=== PATIENT | male | born 1930 | race Caucasian/White ===

== ENCOUNTER 2017-09-16 13:31 | Inpatient (IN) | payer BC, OTHER ==
[~2017-09-16] VITALS: Ht 172.7 cm; Wt 65.3 kg
[2017-09-16 13:38] VITALS: BP 114/50
[2017-09-16] MEDS ORDERED: LISINOPRIL 2.5 MG TABLET (13:41)
[2017-09-16] MEDS ORDERED: AMLODIPINE BESYLATE 5 MG TAB (13:41)
[2017-09-16] MEDS ORDERED: LOVASTATIN 10 MG TABLET (13:41)
[2017-09-16] MEDS ORDERED: METFORMIN HCL ER 500 MG TABLET (13:41)
[2017-09-16] MEDS ORDERED: TAMSULOSIN HCL 0.4 MG CAPSULE (13:41)
[2017-09-16] MEDS ORDERED: MYRBETRIQ ER 50 MG TABLET (13:41)
--- NOTE | 2017-09-16 14:55 | NUR ---
87m biba with c/o productive cough, subjective fever, and weakness x 3 days, progressively getting worse. Pt also reports of 5/10 headache. Pt denies any n/v/d. Pt is aox4. GCS=15. RR are even and unlabored. NAD. er md butler by bedside examining pt. nad. will continue to monitor.
[2017-09-16] MEDS ORDERED: NACL 0.9% 1,000 ML IV SCH (14:57)
--- NOTE | 2017-09-16 14:58 | NUR ---
Note undone in EDM - 09/16/17 at 1500 by JANINE 87m biba with c/o productive cough, subjective fever, and weakness x 3 days, progressively getting worse. Pt denies any n/v/d. Pt is aox4. GCS=15. RR are even and unlabored. NAD. er md butler by bedside examining pt. nad. will continue to monitor.
[2017-09-16 15:55] LABS: BASOPHILS # (AUTO) 0.1 K/uL (0.00-0.22); BASOPHILS % (AUTO) 0.6 % (0.0-2.0); EOSINOPHILS % (AUTO) 0.1 % (0.0-4.0); HEMATOCRIT 33.9 % (36-52); HEMOGLOBIN 11.4 g/dL (12.0-18.0); LYMPHOCYTES # (AUTO) 0.7 K/uL (2.0-11.5); LYMPHOCYTES % (AUTO) 8.1 % (20.5-51.1); MEAN CORPUSCULAR HEMOGLOBIN 31 pg (27-31); MEAN CORPUSCULAR HGB CONC 34 g/dL (33-37); MEAN CORPUSCULAR VOLUME 91 fL (80-94); MONOCYTES # (AUTO) 0.5 K/uL (0.8-1.0); MONOCYTES % (AUTO) 5.2 % (1.7-9.3); NEUTROPHILS # (AUTO) 7.9 K/uL (1.8-7.7); PLATELET COUNT (AUTO) 163 K/uL (140-450); RED BLOOD CELL COUNT(AUTO) 3.73 MIL/uL (4.20-6.10); RED CELL DISTRIBUTION WIDTH 12.4 % (11.6-13.7); WHITE BLOOD COUNT (AUTO) 9.2 K/uL (4.8-10.8)
--- NOTE | 2017-09-16 16:10 | NUR ---
iv fluids infusing without difficultly. pt is aox4. no acute resp distress. nad. will continue to monitor.
[2017-09-16 16:26] LABS: ALBUMIN 3.3 g/dL (3.4-5.0); ANION GAP 15.7 (8-16); ASPARTATE AMINOTRANSFERASE 55 U/L (15-37); CARBON DIOXIDE 29.4 mmol/L (21-32); CHLORIDE 98 mmol/L (98-107); CREATININE 0.9 mg/dL (0.7-1.3); GLUCOSE 95 mg/dL (74-106); POTASSIUM 3.1 mmol/L (3.5-5.1); SODIUM SERUM 140 mmol/L (136-145); TOTAL BILIRUBIN 0.3 mg/dL (0.0-1.0); UREA NITROGEN, BLOOD 25 mg/dL (7-18)
[2017-09-16] MEDS ORDERED: HYDROcodone/APAP 7.5/325 MG 1 TAB PO PRN (17:05)
[2017-09-16] MEDS ORDERED: ONDANSETRON 4 MG/2 ML VIAL IVP PRN (17:05)
[2017-09-16] MEDS ORDERED: ALBUTEROL SULFATE/IPRATROPIU 3 ML SOL IH PRN (17:05)
[2017-09-16] MEDS ORDERED: ACETAMINOPHEN 325 MG TAB PO PRN (17:05)
[2017-09-16] MEDS ORDERED: OSELTAMIVIR PHOSPHATE 75 MG CAP PO ONE (17:10)
[2017-09-16] MEDS ORDERED: POTASSIUM CHLORIDE 10 MEQ TABER PO ONE (17:10)
[2017-09-16] MEDS ORDERED: NACL 0.9% 1,000 ML IV ONE (17:10)
[2017-09-16] MEDS: NACL 0.9% 1,000 ML IV SCH (17:40)
[2017-09-16] MEDS: ALBUTEROL SULFATE/IPRATROPIU 3 ML SOL IH SCH (18:05)
--- NOTE | 2017-09-16 18:05 | NUR ---
RECEIVED PT ON UNIT VIA GURNEY, PT IS AAOX4, AMBULATES WITH ASSIST, IV IS ON THE LEFT AC, PATENT, INTACT, FLUSHING WELL, PT IS ON O2 2L NC, PT HAS DRY, INTERMITTENT COUGH, SKIN IS INTACT, NO S/S OF RESPIRATORY DISTRESS OR DISCOMFORT NOTED, ORIENTED PT TO ROOM, SAFETY/FALL PRECAUTIONS ARE IN PLACE, CALL LIGHT IS WITHIN REACH, PATIENT'S FRIEND IS AT BEDSIDE. WILL CONTINUE TO MONITOR.
--- NOTE | 2017-09-16 18:10 | NUR ---
Patient will be admitted to care of [facility]. Admited to Tele. Will go to room 112b . Belongings list completed. Bedside report to Rossy OTOOLE.
[2017-09-16 18:18] LABS: CHOL/HDL RATIO 4.4 (1-4.5); FREE T4 (FREE THYROXINE) 1.02 ng/dL (0.76-1.46); MAGNESIUM 2.2 mg/dL (1.8-2.4); PHOSPHORUS 3.1 mg/dL (2.5-4.9); THYROID STIMULATING HORMONE 0.46 uIU/mL (0.34-3.74)
[2017-09-16 19:12] LABS: APPEARANCE,URINE CLEAR (CLEAR); BILIRUBIN,URINE NEGATIVE (NEGATIVE); BLOOD, URINE TRACE-I (NEGATIVE); COLOR,URINE YELLOW (YELLOW); LEUKOCYTE ESTERASE ,URINE NEGATIVE (NEGATIVE); NITRITE, URINE NEGATIVE (NEGATIVE); PH,URINE 5.5 (5.0-9.0); UGLUCOSE NEGATIVE (NEGATIVE)
--- NOTE | 2017-09-16 19:25 | NUR ---
ENDORSED PT TO OPEN HEARTH WORKER NURSE FOR CONTINUITY OF CARE. PT STABLE AT THIS TIME. PATIENT'S FRIEND IS AT BEDSIDE.
--- NOTE | 2017-09-16 19:30 | NUR ---
RECEIVED REPORT FROM DAY SHIFT RN, PATIENT RESTING IN BED, NO S/S OF DISTRESS NOTED, FRIEND IS AT THE BEDSIDE. PATIENT SPEAKS LATVIAN, SO THE FRIEND IS THE DATABASE CONSULTANT. IV PATENT AND INTACT, INFUSING NS AT 50ML/HR. CALL LIGHT WITHIN REACH, SAFETY MEASURE ENSURED, WILL CONTINUE TO MONITOR.
[2017-09-16 20:00] VITALS: BP 123/57
--- NOTE | 2017-09-16 20:05 | NUR ---
RUBBER VULCANIZING MACHINE OPERATOR [id number] USED FOR ADMISSION ASSESSMENT, UPON ASSESSMENT, NOTED PATIENT IS A/O X1, UNABLE TO GIVE MEDICAL HISTORY AND OTHER INFORMATION REGARDING HIS CARE. HIS FRIEND AT THE BEDSIDE SPEAKS A LITTLE BIT DANISH, SAID," HE LIVES ALONE, NO FAMILY MEMBER, HE HAS DIABETES LIKE ME, I DON'T KNOW MUCH ABOUT HIS MEDICAL HISTORY."
[2017-09-16 20:09] LABS: RBC,URINE NONE SEEN /HPF (0-5); WBC,URINE 0-5 (RARE) /HPF (0-5)
[2017-09-16] MEDS ORDERED: DEXTROSE 50% 50 ML SYR IVP PRN (20:45)
--- NOTE | 2017-09-16 20:49 | NUR ---
VOMITED X1, ZOFRAN GIVEN ORDERED. NO S/S OF DISTRESS NOTED, RESPIRATION EVEN AND UNLABORED, CALL LIGHT WITHIN REACH, SAFETY MEASURE ENSURED, WILL CONTINUE TO MONITOR.
[2017-09-16] MEDS: DOCUSATE SODIUM 100 MG GELCAP PO SCH (20:50)
[2017-09-16] MEDS: methylPREDNISolone SS 40 MG/ML VIAL IVP SCH (20:50)
[2017-09-16] MEDS ORDERED: LEVOFLOXACIN 500 MG/D5W PREMIX 100 ML IV SCH (21:00)
--- NOTE | 2017-09-16 21:02 | NUR ---
BS 55 AND 49, 50% DEXTROSE IVP ADMINISTERED ORDERED, PATIENT TOLERATED WELL. WILL CONTINUE TO MONITOR.
[2017-09-16] MEDS: BLOOD GLUCOSE MONITORING 1 DEV DEV FS SCH (21:04)
--- NOTE | 2017-09-16 21:14 | NUR ---
BS 205, NO S/S OF DISTRESS NOTED, PATIENT RESTING IN BED, WILL CONTINUE TO MONITOR.
--- NOTE | 2017-09-16 21:15 | NUR ---
DUE MEDICATION GIVEN, PATIENT TOLERATED WELL. RESPIRATION EVEN AND UNLABORED, CALL LIGHT WITHIN REACH, SAFETY MEASURE ENSURED, WILL CONTINUE TO MONITOR.
--- NOTE | 2017-09-16 21:29 | NUR ---
FEVER 100.4, TYLENOL GIVEN ORDERED, NO S/S OF DISTRESS NOTED, WILL CONTINUE TO MONITOR.
--- NOTE | 2017-09-16 22:20 | NUR ---
INFLUENZA A POSITIVE, MADE DR. AGUILAR AWARE.
[2017-09-17] VITALS: BP 117/51
--- NOTE | 2017-09-17 00:54 | NUR ---
PATIENT WAS SLEEPING, EASY TO AROUSE, NO S/S OF DISTRESS NOTED, RESPIRATION EVEN AND UNLABORED, REFUSED O2 NC, ON ROOM AIR, O2SAT 92%. CALL LIGHT WITHIN REACH, SAFETY MEASURE ENSURED, WILL CONTINUE TO MONITOR.
--- NOTE | 2017-09-17 02:55 | NUR ---
NO CHANGE IN CONDITION, PATIENT IS SLEEPING, RESPIRATION EVEN AND UNLABORED, NO S/S OF DISTRESS NOTED, CALL LIGHT WITHIN REACH, SAFETY MEASURE ENSURED, WILL CONTINUE TO MONITOR.
[2017-09-17 04:00] VITALS: BP 103/42
[2017-09-17] MEDS ORDERED: CLINDAMYCIN 600 MG/4 ML VIAL ONE (04:37)
[2017-09-17] MEDS: methylPREDNISolone SS 40 MG/ML VIAL IVP SCH ×3 (04:41→20:27)
[2017-09-17] MEDS: CLINDAMYCIN 600 MG in DEXTROSE 5% 50 ML IV SCH ×3 (04:42→20:27)
--- NOTE | 2017-09-17 04:53 | NUR ---
DUE MEDICATION GIVEN, PATIENT TOLERATED WELL. NO S/S OF DISTRESS NOTED, RESPIRATION EVEN AND UNLABORED, CALL LIGHT WITHIN REACH, SAFETY MEASURE ENSURED, WILL CONTINUE TO MONITOR.
--- NOTE | 2017-09-17 06:17 | NUR ---
PATIENT RESTING IN BED, NO S/S OF DISTRESS NOTED, RESPIRATION EVEN AND UNLABORED, CALL LIGHT WITHIN REACH, SAFETY MEASURE ENSURED, WILL CONTINUE TO MONITOR.
[2017-09-17] MEDS: BLOOD GLUCOSE MONITORING 1 DEV DEV FS SCH ×4 (06:30→20:26)
[2017-09-17] MEDS: INSULIN LISPRO SLIDING SCALE 100 UNITS/ML VIAL SUBQ PRN ×4 (06:32→20:41)
[2017-09-17] MEDS: ALBUTEROL SULFATE/IPRATROPIU 3 ML SOL IH SCH ×3 (07:10→19:33)
--- NOTE | 2017-09-17 07:14 | NUR ---
ENDORSED PLAN OF CARE TO DAY SHIFT RN, PATIENT RESTING IN BED, IN STABLE CONDITION, NO S/S OF DISTRESS.
--- NOTE | 2017-09-17 07:20 | NUR ---
REPORT RECEIVED FROM BUSINESS INTELLIGENCE ARCHITECT NURSE NAZIA MCKEON AWAKE ALERT RESTING QUIETLY IN NAD, RESP EVEN UNLABORED ON RA, SKIN WARM DRY COLOR WNL, DENIES PAIN OR DISCOMFORT, FRIEND AT BEDSIDE, PLAN OF CARE REVIEWED, NO IMMEDIATE NEEDS VOICED AT THIS TIME, CALL HAIDER WITHIN REACH, SIDE RAILS UP, BED LOCKED IN LOW POSITION WILL CONTINUE TO MONITOR.
[2017-09-17 08:00] VITALS: BP 117/47
[2017-09-17] MEDS: amLODIPine 5 MG TAB PO SCH (08:08)
--- NOTE | 2017-09-17 08:09 | NUR ---
PT SITTING UP EATING BREAKFAST IN NAD, WILL ADMINISTER AM MEDS NOW, FRIEND AT BEDSIDE ASSISTING PT WITH BREAKFAST.
[2017-09-17] MEDS: metFORMIN 500 MG TAB PO SCH ×2 (08:11→16:18)
[2017-09-17] MEDS: LISINOPRIL 5 MG TAB PO SCH (08:12)
[2017-09-17] MEDS: DOCUSATE SODIUM 100 MG GELCAP PO SCH ×2 (08:12→20:27)
[2017-09-17] MEDS: ATORVASTATIN 20 MG TAB PO SCH (08:12)
[2017-09-17] MEDS: TAMSULOSIN 0.4 MG CAP PO SCH (08:12)
--- NOTE | 2017-09-17 09:13 | NUR ---
CM NOTE PER [facility], REVIEWS SHOULD ONLY BE SENT TO [facility]. INITIAL REVIEW FAXED TO [facility] [phone] DONYA Gomez. # [phone].
--- NOTE | 2017-09-17 09:20 | NUR ---
US AT BEDSIDE.
--- NOTE | 2017-09-17 09:49 | NUR ---
PATIENT HAS BEEN SCREENED AND CATEGORIZED MODERATE NUTRITION RISK. PATIENT WILL BE SEEN WITHIN 3-5 DAYS OF ADMISSION. 09/18/17-09/20/[address]
--- NOTE | 2017-09-17 11:30 | NUR ---
FINGER STICK GLUCOSE 230, WILL GIVE 8 UNITS INSULIN PER SLIDING SCALE. PT SITTING UP RESTING QUIETLY IN NAD, DENIES PAIN OR DISCOMFORT, DENIES ANY IMMEDIATE NEEDS, WILL CONTINUE TO MONITOR.
[2017-09-17 12:00] VITALS: BP 121/60
--- NOTE | 2017-09-17 14:44 | NUR ---
SITTING UP TALKING WITH FRIEND AT BEDSIDE, DENIES PAIN OR DISCOMFORT, RESP EVEN UNLABORED ON ROOM AIR WITH OCCASIONAL COUGHS, DENIES ANY IMMEDIATE NEEDS, CALL HAIDER WITHIN REACH, SIDE RAILS UP, BED LOCKED IN LOW POSITION, WILL CONTINUE TO MONITOR
[2017-09-17] MEDS ORDERED: LACTOBACILLUS RHAMNOSUS GG 1 EACH CAP PO SCH (15:00)
[2017-09-17 16:00] VITALS: BP 110/55
[2017-09-17] MEDS: NACL 0.9% 1,000 ML IV SCH (16:18)
--- NOTE | 2017-09-17 16:30 | NUR ---
BEDSIDE GLUCOSE 288, WILL GIVE 6 UNITS INSULIN PER SLIDING SCALE, 1600 EKG STRIP SHOWS BBB, DR HINTON NOTIFIED, WILL ADJUST LEADS LOCATIONS AND CONTINUE TO MONITOR PER DR HINTON. PT CONDITION UNCHANGED DENIES CHEST PAIN, DIZZINESS OR LIGHT HEADEDNESS, TALKING WITH FRIEND IN NAD.
--- NOTE | 2017-09-17 18:05 | NUR ---
SITTING UP EATING DINNER.
--- NOTE | 2017-09-17 19:08 | NUR ---
REPORT GIVEN TO INDEPENDENT LIVING ADVISOR NURSE NAZIA MCKEON IN STABLE CONDITION.
--- NOTE | 2017-09-17 19:18 | NUR ---
RECEIVED REPORT FROM DAY SHIFT RN, PATIENT RESTING IN BED, AWAKE ALERT ORIENTED X2, NO S/S OF DISTRESS NOTED, RESPIRATION EVEN AND UNLABORED, ON NC 2L. IV PATENT AND INTACT, INFUSING NS AT 50ML/HR. PLAN OF CARE DISCUSSED, PATIENT VERBALIZED UNDERSTANDING, RT IS AT THE BEDSIDE, WILL GIVE BREATHING TREATMENT. CALL LIGHT WITHIN REACH, SAFETY MEASURE ENSURED, WILL CONTINUE TO MONITOR.
[2017-09-17 19:58] VITALS: BP 102/47
[2017-09-17] MEDS ORDERED: LEVOFLOXACIN 750 MG/D5W PREMIX 150 ML IV SCH (21:00)
--- NOTE | 2017-09-17 21:23 | NUR ---
DUE MEDICATION GIVEN, PATIENT TOLERATED WELL, NO S/S OF DISTRESS NOTED, RESPIRATION EVEN AND UNLABORED, CALL LIGHT WITHIN REACH, SAFETY MEASURE ENSURED, WILL CONTINUE TO MONITOR.
[2017-09-18] VITALS: BP 101/44
--- NOTE | 2017-09-18 00:20 | NUR ---
NO CHANGE IN CONDITION, PATIENT WAS SLEEPING, EASY TO AROUSE, VITAL SINGS STABLE, CALL LIGHT WITHIN REACH, SAFETY MEASURE ENSURED, WILL CONTINUE TO MONITOR.
--- NOTE | 2017-09-18 02:03 | NUR ---
PATIENT PULLED THE IV OUT, PRESSURE APPLIED ON THE IV SITE, UNTIL NO ACTIVE BLEEDING NOTED AT THE SITE, STARTED NEW IV 20G LT FOREARM. TOLERATED WELL. WILL CONTINUE TO MONITOR.
[2017-09-18 04:00] VITALS: BP 110/57
[2017-09-18] MEDS: CLINDAMYCIN 600 MG in DEXTROSE 5% 50 ML IV SCH ×2 (04:44→14:17)
[2017-09-18] MEDS: methylPREDNISolone SS 40 MG/ML VIAL IVP SCH ×2 (04:48→14:16)
--- NOTE | 2017-09-18 04:52 | NUR ---
DUE MEDICATION GIVEN, PATIENT TOLERATED WELL. NO S/S OF DISTRESS NOTED, RESPIRATION EVEN AND UNLABORED, CALL LIGHT WITHIN REACH, SAFETY MEASURE ENSURED, WILL CONTINUE TO MONITOR.
[2017-09-18 06:17] LABS: BASOPHILS # (AUTO) 0.1 K/uL (0.00-0.22); BASOPHILS % (AUTO) 1.3 % (0.0-2.0); EOSINOPHILS % (AUTO) 0.1 % (0.0-4.0); HEMATOCRIT 31.8 % (36-52); HEMOGLOBIN 10.5 g/dL (12.0-18.0); LYMPHOCYTES # (AUTO) 0.8 K/uL (2.0-11.5); LYMPHOCYTES % (AUTO) 12.8 % (20.5-51.1); MEAN CORPUSCULAR HEMOGLOBIN 30 pg (27-31); MEAN CORPUSCULAR HGB CONC 33 g/dL (33-37); MEAN CORPUSCULAR VOLUME 91 fL (80-94); MONOCYTES # (AUTO) 0.4 K/uL (0.8-1.0); NEUTROPHILS # (AUTO) 5.3 K/uL (1.8-7.7); NEUTROPHILS % (AUTO) 79.8 % (42.2-75.2); PLATELET COUNT (AUTO) 160 K/uL (140-450); RED BLOOD CELL COUNT(AUTO) 3.49 MIL/uL (4.20-6.10); RED CELL DISTRIBUTION WIDTH 12.7 % (11.6-13.7); WHITE BLOOD COUNT (AUTO) 6.6 K/uL (4.8-10.8)
[2017-09-18] MEDS: BLOOD GLUCOSE MONITORING 1 DEV DEV FS SCH ×3 (06:36→17:06)
[2017-09-18] MEDS: INSULIN LISPRO SLIDING SCALE 100 UNITS/ML VIAL SUBQ PRN ×3 (06:37→17:07)
[2017-09-18 06:39] LABS: ANION GAP 14.6 (8-16); CARBON DIOXIDE 24.2 mmol/L (21-32); CHLORIDE 101 mmol/L (98-107); CREATININE 0.8 mg/dL (0.7-1.3); GLUCOSE 251 mg/dL (74-106); POTASSIUM 3.8 mmol/L (3.5-5.1); SODIUM SERUM 136 mmol/L (136-145); UREA NITROGEN, BLOOD 26 mg/dL (7-18)
[2017-09-18 06:46] LABS: MAGNESIUM 1.8 mg/dL (1.8-2.4); PHOSPHORUS 2.6 mg/dL (2.5-4.9)
[2017-09-18] MEDS: ALBUTEROL SULFATE/IPRATROPIU 3 ML SOL IH SCH ×2 (06:48→12:52)
--- NOTE | 2017-09-18 06:50 | NUR ---
BS 245, ADMINISTER HUMALOG 4UNITS PER SLIDING SCALE.
--- NOTE | 2017-09-18 07:15 | NUR ---
ENDORSED PLAN OF CARE TO DAY SHIFT RN, PATIENT IS IN STABLE CONDITION, NO S/S OF DISTRESS NOTED.
--- NOTE | 2017-09-18 07:17 | NUR ---
RECEIVED REPORT FROM [facility] FOR CONTINUITY OF CARE. PATIENT IN BED RESTING WITH FRIEND AT BEDSIDE. NO ACUTE DISTRESS NOTED. WILL CONT TO MONITOR PT.
[2017-09-18 08:01] VITALS: BP 141/62
--- NOTE | 2017-09-18 08:35 | NUR ---
PHYSICAL THERAPY AT BEDSIDE.
[2017-09-18] MEDS ORDERED: LACTOBACILLUS RHAMNOSUS GG 1 EACH CAP PO SCH (09:00)
[2017-09-18] MEDS: NACL 0.9% 1,000 ML IV SCH (09:01)
[2017-09-18] MEDS: ATORVASTATIN 20 MG TAB PO SCH (09:39)
[2017-09-18] MEDS: amLODIPine 5 MG TAB PO SCH (09:39)
[2017-09-18] MEDS: TAMSULOSIN 0.4 MG CAP PO SCH (09:39)
[2017-09-18] MEDS: DOCUSATE SODIUM 100 MG GELCAP PO SCH (09:39)
[2017-09-18] MEDS: LISINOPRIL 5 MG TAB PO SCH (09:40)
[2017-09-18] MEDS: metFORMIN 500 MG TAB PO SCH ×2 (09:40→17:11)
--- NOTE | 2017-09-18 09:40 | NUR ---
PT RETURNED FROM PT ROOM. ADMINISTERED ALL SCHEDULED MEDS. ON ROOM AIR O2 SAT @90%. BLOOD PRESSURE AND HR RECHECKED. 117/74. HR 74. NO ACUTE DISTRESS NOTED. FRIEND MICHAEL AT BEDSIDE. WILL CONT TO MONITOR PT.
[2017-09-18] MEDS ORDERED: MIRA50TE PO (09:46)
[2017-09-18] MEDS ORDERED: LEVO750T2 PO (09:46)
[2017-09-18] MEDS ORDERED: LISI-424 PO (09:46)
[2017-09-18] MEDS ORDERED: AMLO5TAB4 PO (09:46)
[2017-09-18] MEDS ORDERED: TAMS0.4C96 PO (09:46)
[2017-09-18] MEDS ORDERED: DM H118S7 PO (09:46)
[2017-09-18] MEDS ORDERED: LACT10CA PO (09:46)
[2017-09-18] MEDS ORDERED: CLIN300C2 PO (09:46)
[2017-09-18] MEDS ORDERED: LOVA20TA8 PO (09:46)
[2017-09-18] MEDS ORDERED: GLU500 PO (09:46)
--- NOTE | 2017-09-18 10:15 | NUR ---
SPOKE WITH PATIENT AND HIS FRIEND KAPIL VIA [facility] TELEPHONE MEMORY CARE DIRECTOR FROYLAN #[id number] AT LENGTH REGARDING DISCHARGE PLAN, PT MADE AWARE OF RECOMMENDATION TO GO TO SNF/REHAB FOR PT DUE TO UNSAFE GAIT AT THIS TIME, FRIEND KAPIL STATES SHE DOES "NOT LIVE WITH HIM, I WILL TAKE HIM HOME AND I HAVE TO GO HOME BECAUSE I HAVE MY OWN LIFE TOO", PT WAS INITIALLY AGREEABLE TO GOING TO SNF FOR PT/REHAB BUT STATES "ONLY AFTER I TAKE CARE OF IMPORTANT BUSINESS, I NEED TO GO TO THE BANK AND PAY MY RENT TODAY", PT EXPLAINED THAT DOCTOR AND PT RECOMMENDS GOING TO SNF DIRECTLY FROM HOSPITAL FOR HIS OWN SAFETY, PT BECAME IRRITATED AND WITH RAISED VOICE STATED "I CAN'T GO TO REHAB TODAY I NEED TO GO HOME FIRST AND GO TO THE BANK AND PAY MY RENT AND I ALSO HAVE AN APPOINTMENT, YOU CAN CALL ME AT HOME TO ARRANGE FOR ME TO GO TO REHAB!!" KAPIL STATED THAT "HE, MR ESCOBEDO DID PHYSICAL THERAPY TODAY AND YESTERDAY, HE DOESN'T NEED ANY MORE THERAPY FOR A WEEK!! I CAN TAKE HIM HOME AND TAKE HIM TO THE BANK" IT WAS EXPLAINED TO HER THAT DAILY PT AT SNF WAS RECOMMENDED UNTIL HE IS STRONGER TO GO LIVE ALONE AT HOME ON THE SECOND FLOOR, KAPIL AND PT ADAMANTLY REFUSES NEED FOR TRANSFER TO SNF FOR PT, KAPIL STATES "MAYBE I WILL STAY WITH HIM FOR ABOUT A WEEK OR SO AND SEE WHAT HAPPENS", CM/SW MADE AWARE OF THE DISCUSSION AND PT'S WISH TO GO HOME AND REFUSE TO GO SNF.
--- NOTE | 2017-09-18 10:20 | NUR ---
CM NOTE CONCURRENT REVIEW FAXED TO [facility] [phone] DONYA Shrestha PH# [phone].
--- NOTE | 2017-09-18 11:37 | NUR ---
CM NOTE RECEIVED ORDER FOR HOME HEALTH AND FWW. PER [facility] PH# [phone], PATIENT'S HOME HEALTH ARRANGED WITH [facility] PH# [phone] AUTH# [id number] AND [facility] IS AWARE OF PATIENT'S DISCHARGE ORDER FOR TODAY. PER [facility] WILL DELIVER FWW BEDSIDE TODAY AUTH# [id number]. CHARGE NURSE HIGINIO WILSON.
[2017-09-18 12:00] VITALS: BP 127/61
[2017-09-18 12:23] VITALS: BP 127/61
[2017-09-18] MEDS ORDERED: METH4TAB3 PO (12:35)
--- NOTE | 2017-09-18 14:51 | NUR ---
DISCHARGE INSTRUCTIONS AND PRESCIPTION INFORMATION GIVE AND EXPLAINED TO PT AND FRIEND MICHAEL. VERBALIZED UNDERSTANDING. AWAITING WALKER. PRIOR TO DC HOME. IV ATB INFUSING. SITE CLEAR. WILL CONT TO MONITOR PT.
--- NOTE | 2017-09-18 15:13 | NUR ---
CM NOTE RECEIVED FAX FROM [facility] REQUESTING FOR H&P, PROGRESS NOTES, RECENT MEDICATION LIST, PHYSICAL THERAPY NOTES TO BE FAXED TO THEM. PER [facility] CARE CM DONYA # [phone] TO SEND THE INFORMATION REQUESTED TO [facility]. FAXED H&P, PROGRESS NOTES, RECENT MEDICATION LIST AND PHYSICAL THERAPY NOTES TO [facility] [phone] # [phone] ATTN: FARIHA CORNEJO, ADDIE.
[2017-09-18 16:00] VITALS: BP 102/62
--- NOTE | 2017-09-18 16:02 | NUR ---
STILL WAITING ON WALKER DELIVERY, IT HAS BEEN EXPLAINED TO THEM MANY TIMES THAT IT IS UNSAFE FOR PT TO GO HOME WITHOUT ASSISTIVE DEVICE, PT AND FRIEND MICHAEL DOES NOT WANT TO WAIT FOR WALKER BECAUSE THEIR FRIEND SUSY IS AVAILABLE NOW TO TAKE THEM HOME, PT AND MICHAEL EXPLAINED AGAIN THAT IF MR ESCOBEDO REFUSES TRANSFER TO SNF FOR PT, PT NEEDS WALKER TO GO HOME. THEIR FRIEND SUSY STATES SHE CAN'T WAIT AROUND TO GIVE THEM A RIDE HOME, AND ASKED IF TRANSPORTATION SERVICE CAN BE ARRANGED FOR THEN TO GET HOME WHEN WALKER IS DELIVERED. WILL NOTIFY CHARGE AND CM OF UNAVAILABILITY OF RIDE TO GO HOME AND PT'S WISH TO GO HOME NOW WITHOUT WALKER.
--- NOTE | 2017-09-18 17:15 | NUR ---
PT AND MICHAEL VERY UPSET THAT THEY ARE STILL WAITING FOR WALKER DELIVERY, WILL CALL [facility] TO FIND OUT WHEN IT WILL ARRIVE, PT AND MICHAEL REASSURED THAT WE WILL ARRANGE [facility] TO TAKE THEM HOME WITH [facility] VOUCHER PER NURSING ORACLE DEVELOPER/LESLY/CHARGE NURSE HIGINIO. Addendum: 09/18/17 at 1926 by Julia Morales RN ATTEMPTED TO CALL THEIR FRIEND SUSY TO INFORM HER OF [facility] TRANSPORTATION, BUT NO ANSWER, LEFT MESSAGE.
--- NOTE | 2017-09-18 17:32 | NUR ---
CALLED [facility] TO CHECK THE STATUS OF THE FWW THEY HAVE THE AUTHORIZATION AND CLEARANCE BUT NO DIANA NUMBER THAT TELLS THE DELIVERY TIME.
--- NOTE | 2017-09-18 18:18 | NUR ---
PT GETTING UP OUT OF BED WALKING OUT TO HALLWAY YELLING THAT HE CAN'T WAIT FOR WALKER ANY MORE, WANTS TO GO HOME, PT IS STILL UNSTEADY ON HIS FEET, STUMBLING, NEEDED TO BE HELD UP TO PREVENT FALL, CHARGE NURSE HIGINIO SPOKE TO [facility] [place], OKAY TO GIVE PT THE WALKER FROM THE FLOOR IF PT UNABLE TO WAIT FOR WALKER DELIVERY, NEIGHBOR SUSY CALLED AND AWAITING FOR HER ARRIVAL TO [facility] WITH HOME HEALTH.
--- NOTE | 2017-09-18 18:40 | NUR ---
NEIGHBOR SUSY HERE TO ACUPRESSURIST PT AND FRIEND MICHAEL, IV DC'D, CATH TIP INTACT, BLEEDING CONTROLLED, PT CHANGED TO HIS CLOTHING, SITTING UP IN WHEELCHAIR IN NAD, PT AND MICHAEL AWARE OF HOME HEALTH ARRANGIMENT AND FOLLOW UP APPOINTMENT, PT WAS BEING ESCORTED OUT TO FRONT LOBBY, [employer] DELIVERY CAME WITH HIS WALKER, [facility] WALKER RETURNED TO FLOOR, PT DC'D HOME WITH MICHAEL AND SUSY WITH NEW WALKER.
== END 2017-09-18 18:42 | disposition home health service (06) | DRG 177 ==
LOC: MED 13:31 → MTU 17:10 → UNDOADMIN 17:10
PROVIDERS: ADMIT Family Medicine; ATTEND Family Medicine
DX: J69.0 Pneumonitis due to inhalation of food and vomit (principal); N17.0 Acute kidney failure with tubular necrosis; E87.2 Acidosis; E44.0 Moderate protein-calorie malnutrition; E11.65 Type 2 diabetes mellitus with hyperglycemia; D68.59 Other primary thrombophilia; J44.0 Chronic obstructive pulmonary disease with (acute) lower respiratory infection; J44.1 Chronic obstructive pulmonary disease with (acute) exacerbation; B34.9 Viral infection, unspecified; E86.0 Dehydration; I73.9 Peripheral vascular disease, unspecified; E87.6 Hypokalemia; I10 Essential (primary) hypertension; E78.5 Hyperlipidemia, unspecified; N40.0 Benign prostatic hyperplasia without lower urinary tract symptoms; J20.9 Acute bronchitis, unspecified; J10.1 Influenza due to other identified influenza virus with other respiratory manifestations; R09.02 Hypoxemia; Z68.21 Body mass index [BMI] 21.0-21.9, adult; Z87.891 Personal history of nicotine dependence
CPT/HCPCS: 36415; 36600; 71045; 80048; 80053; 81001; 82150; 82550; 82553; 82803; 82948; 83036; 83605; 83690; 83735; 83874; 83880; 84100; 84439; 84443; 84484; 85025; 85610; 85730; 87040; 87081; 87086; 87804; 93005; 93925; 93970; 94640; 96360; 96361; 97110; 97116; 97140; 97530; 99285; J1956; J2405; J2920; J3490; J7030; J7060; J7620; Q0092

== ENCOUNTER 2018-04-06 11:54 | Emergency (ER) | payer OTHER ==
[~2018-04-06] VITALS: Ht 160 cm; Wt 54.4 kg
[~2018-04-06 11:54] MED LIST: AMLO5TAB4 PO; CLIN300C2 PO; DM H118S7 PO; GLU500 PO; LACT10CA PO; LEVO750T2 PO; LISI-424 PO; LOVA20TA8 PO; METH4TAB3 PO; MIRA50TE PO; TAMS0.4C96 PO
--- NOTE | 2018-04-06 11:54 | NUR ---
PATIENT BIBA TO BED 12 AT THIS TIME.
[2018-04-06 12:00] VITALS: BP 122/53
--- NOTE | 2018-04-06 12:00 | NUR ---
87m biba from with c/o llq/suprapubic pain x "couple days" per patient. Patient also reports of not being able to void and constipation. Patient denies any vomitting, fevers, or diarrhea. Patient lives at home by himself.Patient is cared for by neighbor which is by bedside. Skin tear to left elbow noted. Pt is aox3 to person, situation, and place. RR are even and unlabored. Dry mucous membranes. Abd soft and tender to palpation. Bladder distention noted. Patient changed into gown. Patient to cardiac, bp, pulse, and pulse ox monitoring. VSS. Will continue to monitor.
[2018-04-06] MEDS ORDERED: NACL 0.9% 2,000 ML IV SCH (12:18)
[2018-04-06] MEDS ORDERED: PIPERACILLIN/TAZOBACTAM 3.375 GM in DEXT 5% MINI-BAG PLUS 50 ML IV ONE (12:20)
[2018-04-06] MEDS ORDERED: ONDANSETRON 4 MG/2 ML VIAL IVP ONE (12:20)
[2018-04-06] MEDS ORDERED: KETOROLAC 15 MG/ML VIAL IVP ONE (12:20)
[2018-04-06] MEDS ORDERED: LIDOCAINE JELLY 2% 30 ML TUBE TP ONE (12:30)
[2018-04-06] MEDS ORDERED: PIPERACILLIN/TAZOBACTAM 3.375 GM VIAL IV ONE (12:36)
[2018-04-06 13:00] LABS: BASOPHILS % (AUTO) 0.3 % (0.0-2.0); EOSINOPHILS # (AUTO) 0.1 K/uL (0-0.4); EOSINOPHILS % (AUTO) 0.8 % (0.0-4.0); HEMATOCRIT 36.9 % (36-52); HEMOGLOBIN 12.4 g/dL (12.0-18.0); LYMPHOCYTES % (AUTO) 8.7 % (20.5-51.1); MEAN CORPUSCULAR HEMOGLOBIN 31 pg (27-31); MEAN CORPUSCULAR HGB CONC 34 g/dL (33-37); MEAN CORPUSCULAR VOLUME 91.4 fL (80-94); MONOCYTES # (AUTO) 0.5 K/uL (0.8-1.0); MONOCYTES % (AUTO) 3.9 % (1.7-9.3); NEUTROPHILS # (AUTO) 10.2 K/uL (1.8-7.7); NEUTROPHILS % (AUTO) 86.3 % (42.2-75.2); PLATELET COUNT (AUTO) 232 K/uL (140-450); RED BLOOD CELL COUNT(AUTO) 4.04 MIL/uL (4.20-6.10); WHITE BLOOD COUNT (AUTO) 11.8 K/uL (4.8-10.8)
[2018-04-06 13:10] LABS: APPEARANCE,URINE HAZY (CLEAR); BILIRUBIN,URINE NEGATIVE (NEGATIVE); BLOOD, URINE 3+ (NEGATIVE); COLOR,URINE YELLOW (YELLOW); LEUKOCYTE ESTERASE ,URINE NEGATIVE (NEGATIVE); NITRITE, URINE NEGATIVE (NEGATIVE); UGLUCOSE NEGATIVE (NEGATIVE)
--- NOTE | 2018-04-06 13:19 | NUR ---
xray by bedside
[2018-04-06 13:20] LABS: ANION GAP 6.4 (8-16); CARBON DIOXIDE 31.6 mmol/L (21-32); CHLORIDE 101 mmol/L (98-107); CREATININE 0.6 mg/dL (0.7-1.3); GLUCOSE 189 mg/dL (74-106); SODIUM SERUM 135 mmol/L (136-145); UREA NITROGEN, BLOOD 15 mg/dL (7-18)
[2018-04-06 13:21] LABS: ACETONE, SERUM NEGATIVE (NEGATIVE); PROTHROMBIN TIME 9.9 secs (10.8-13.4)
[2018-04-06 13:26] LABS: ALBUMIN 3.9 g/dL (3.4-5.0); ASPARTATE AMINOTRANSFERASE 15 U/L (15-37); TOTAL BILIRUBIN 0.5 mg/dL (0.0-1.0)
[2018-04-06 13:32] LABS: MAGNESIUM 1.8 mg/dL (1.8-2.4); URIC ACID 3.2 mg/dL (2.6-7.2)
[2018-04-06 13:36] LABS: RBC,URINE 80-100 /HPF (0-5); WBC,URINE 0-5 (RARE) /HPF (0-5)
--- NOTE | 2018-04-06 14:28 | NUR ---
Neighbor Betty Ramachandran
--- NOTE | 2018-04-06 14:28 | NUR ---
pt resting with eyes closed. vss. nad. awaiting pending admit.
--- NOTE | 2018-04-06 15:34 | NUR ---
Patient remaing resting with eyes closed. Vss. Nad. Awaiting to see if patient will be tranferred to [facility] or admitted here. Patient with no complaints. All needs met at this time. Will continue to monitor.
--- NOTE | 2018-04-06 16:01 | NUR ---
PT TO CT VIA GENET ACCOMPANIED BY TIRE MANAGER
--- NOTE | 2018-04-06 16:11 | NUR ---
pt returned from ct via gurney accompanied by technology assistant; pt back to rm 12 without incident
--- NOTE | 2018-04-06 18:07 | NUR ---
pt provided meal tray. eating without difficultly or coughing. pt with no complaints. vss. nad. will continue to monitor.
--- NOTE | 2018-04-06 18:41 | NUR ---
Patient to be transferred to [facility]. Is being transferred due to continuation care per HMO insurance. Receiving facility has accepting physician and available space. ER physician has signed transfer form. Patient or responsible libertarian has agreed to transfer and signed form. Patient belongings inventoried and will be sent with patient. Copy of nursing notes, lab reports, EKG, Physicians Orders and X-rays to be sent with patient. Report called to Gia Spicer at receiving facility. [facility] ambulance service has been called for transfer. ETA is 1 hr.
--- NOTE | 2018-04-06 19:07 | NUR ---
[facility] AT BEDSIDE
[2018-04-06 19:27] VITALS: BP 130/43
--- NOTE | 2018-04-06 19:27 | NUR ---
PT LEFT ER ON [facility]. VSS. NAD. PT LEFT WITHOUT INCIDENT.
== END 2018-04-06 19:27 | disposition short-term general hospital (02) ==
LOC: MED 11:54
DX: N41.9 Inflammatory disease of prostate, unspecified (principal); N13.8 Other obstructive and reflux uropathy; E86.0 Dehydration; J44.1 Chronic obstructive pulmonary disease with (acute) exacerbation; E11.9 Type 2 diabetes mellitus without complications; I10 Essential (primary) hypertension; Z88.8 Allergy status to other drugs, medicaments and biological substances
CPT/HCPCS: 36415; 36600; 71045; 74176; 80053; 81001; 82009; 82140; 82803; 82948; 83036; 83605; 83735; 83880; 84153; 84154; 84484; 84550; 85025; 85610; 85730; 87040; 87086; 93005; 96365; 96375; 99285; J1885; J2405; J2543; J7030; J7060; Q0092